=== PATIENT | female | born 1960 | race Caucasian/White ===

== ENCOUNTER → 2016-09-21 | Outpatient (CLI) | payer OTHER ==
[~2016-09-21] MED LIST: BUPRENORPHN-NA1 EACH PO; CLARITIN 10MG T10 MG PO; ELAVIL 10 MG TA10 MG PO; FLONASE ALLER15.8 ML; HYDROCHLOROTHIA50 MG PO; IBUPROFEN800 MG PO; IMITREX TAB 2525 MG PO; LEVAQUIN750 MG PO; NEURONTIN 400400 MG PO; POTASSIUM CHLO20 ME2 PO; PROTONIX 40 MG40 M1 PO; PROVENTIL HFA 61 INH INH; SEROQUEL100 MG PO; SINGULAIR10 MG PO; SYNTHROID 150150 MCG PO; TESSALON PERLE100 MG PO; VOLTAREN100 GM TP; ZANAFLEX 4 MG TA4 MG PO; ZANTAC 150 MG150 MG PO; ZOFRAN ODT4 MG PO; ZOLOFT50 MG PO
== END ==
LOC: KOH-I 09-19 08:00
DX: J32.8 Other chronic sinusitis (principal); H91.8X3 Other specified hearing loss, bilateral
CPT/HCPCS: 70486; 70553; A9577

== ENCOUNTER 2016-12-15 20:18 | Observation (INO) | payer MEDICARE ==
[~2016-12-15] VITALS: Ht 162.6 cm; Wt 67.7 kg
[~2016-12-15 20:18] MED LIST changes: -HYDROCHLOROTHIA50 MG PO; -IMITREX TAB 2525 MG PO; -POTASSIUM CHLO20 ME2 PO; -PROVENTIL HFA 61 INH INH; -SEROQUEL100 MG PO; -SINGULAIR10 MG PO; -VOLTAREN100 GM TP; -ZANTAC 150 MG150 MG PO; -ZOLOFT50 MG PO
[2016-12-15 22:42] LABS: HEMOGLOBIN 13.3 gm/dl (12.3-15.3); RED BLOOD COUNT 4.45 M/UL (4.00-5.10); WHITE BLOOD COUNT 6.9 K/UL (4.5-11.0)
[2016-12-15 23:02] LABS: BUN/CREATININE RATIO 6 (0-10)
[2016-12-16] MEDS ORDERED: ZANTAC 150 MG150 MG PO (04:44)
[2016-12-16] MEDS ORDERED: VOLTAREN100 GM TP (04:45)
[2016-12-16] MEDS ORDERED: IMITREX TAB 2525 MG PO (04:46)
[2016-12-16] MEDS ORDERED: SINGULAIR10 MG PO (04:47)
[2016-12-16] MEDS ORDERED: POTASSIUM CHLO20 ME2 PO (04:47)
[2016-12-16] MEDS ORDERED: HYDROCHLOROTHIA50 MG PO (04:47)
[2016-12-16] MEDS ORDERED: PROVENTIL HFA 61 INH INH (04:48)
[2016-12-16] MEDS ORDERED: SEROQUEL100 MG PO (04:58)
[2016-12-16] MEDS ORDERED: ZOLOFT50 MG PO (04:59)
[2016-12-16 06:48] LABS: BUN/CREATININE RATIO 6 (0-10)
[2016-12-17 05:00] LABS: BUN/CREATININE RATIO 15 (0-10)
--- NOTE | 2016-12-17 05:28 | NUR ---
Pt. has had a consistently low blood pressure of 70-80's systolic tonight without any symptoms. She was started on seroquel and zoloft tonight as she had been prescribed those as home meds and renewed in hospital, but states, "she was okay with starting her doses tonight." Neurontin was not given due to low blood pressure. Pt. has been asymptomatic. Has walked in halls to snack machine without any problems.
== END 2016-12-17 14:17 | disposition home or self-care (01) ==
LOC: ER1 20:18 → MED SURG 4 12-16 00:35 → ZEROF 12-16 00:35 → MED SURG 4 12-16 04:08
PROVIDERS: Internal Medicine; Student in an Organized Health Care Education/Training Program; ADMIT Internal Medicine
DX: E87.1 Hypo-osmolality and hyponatremia (principal); R11.0 Nausea; E89.0 Postprocedural hypothyroidism; J44.9 Chronic obstructive pulmonary disease, unspecified; M06.9 Rheumatoid arthritis, unspecified; F41.9 Anxiety disorder, unspecified; F17.210 Nicotine dependence, cigarettes, uncomplicated; Z87.19 Personal history of other diseases of the digestive system; Z90.49 Acquired absence of other specified parts of digestive tract; Z90.710 Acquired absence of both cervix and uterus; Z88.2 Allergy status to sulfonamides; Z88.8 Allergy status to other drugs, medicaments and biological substances
CPT/HCPCS: 36415; 71020; 80048; 80053; 80307; 82550; 82553; 83605; 83874; 83880; 83930; 83935; 84295; 84300; 84443; 84484; 85025; 85379; 87040; 93005; 94640; 94664; 96372; 96374; 96375; 99285; G0378; J1650; J1956; J2405; J2930; J7030; Q0162